=== PATIENT | female | born 1980 ===

== ENCOUNTER 2017-12-16 10:30 | Inpatient (IN) | payer OTHER ==
[~2017-12-16] VITALS: Ht 157.5 cm; Wt 2.7 kg
[~2017-12-16 10:30] MED LIST: IRON1 TAB PO; PRENATAL CAPLE1 EACH PO; SYNTHROID150 MCG PO
== END 2018-01-08 15:09 | disposition home or self-care (01) | DRG 788 ==
LOC: OB/GYN 01-05 10:30 → LDR 01-05 16:38 → SURG-SUITE 01-05 18:15
PROVIDERS: Obstetrics & Gynecology
PROC: 4A1HXCZ Monitoring of Products of Conception, Cardiac Rate, External Approach (ICD-10-PCS; 2018-01-05)
PROC: 10D00Z1 Extraction of Products of Conception, Low, Open Approach (ICD-10-PCS; principal; 2018-01-05 16:15)
DX: O82 Encounter for cesarean delivery without indication (principal); Z3A.39 39 weeks gestation of pregnancy; Z37.0 Single live birth